=== PATIENT | male | born 1990 | race African-American/Black ===

== ENCOUNTER 2016-12-01 14:45 | Emergency (ER) | payer MEDICAID ==
[~2016-12-01] VITALS: Ht 182.9 cm; Wt 131.5 kg
[~2016-12-01 14:45] MED LIST: CYCLOBENZAPRINE10 MG ORAL; IBUPROFEN800 MG ORAL; KENALOG 0.5% CR15 GM TP
[2016-12-01] MEDS ORDERED: Ketorolac 60mg Inj IM ONE (16:30)
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
[2016-12-01] MEDS ORDERED: CYCLOBENZAPRINE10 MG ORAL (16:59)
[2016-12-01] MEDS ORDERED: IBUPROFEN600 MG ORAL (16:59)
[2016-12-01] MEDS ORDERED: TRIAMCINOLONE A15 G2 TP (17:15)
[2016-12-01 17:20] VITALS: BP 138/87
== END 2016-12-01 17:20 | disposition home or self-care (01) ==
LOC: EMR 16:35
DX: M62.830 Muscle spasm of back (principal); L30.1 Dyshidrosis [pompholyx]; L30.9 Dermatitis, unspecified; I10 Essential (primary) hypertension
CPT/HCPCS: 96372; 99284

== ENCOUNTER 2017-01-06 08:52 | Emergency (ER) | payer MEDICAID ==
[~2017-01-06] VITALS: Ht 182.9 cm; Wt 131.5 kg
[~2017-01-06 08:52] MED LIST changes: +IBUPROFEN600 MG ORAL; +TRIAMCINOLONE A15 G2 TP
[2017-01-06 09:08] VITALS: BP 136/87
[2017-01-06] MEDS ORDERED: Famotidine 20 MG/ 2ML VIAL IVP ONE (09:30)
[2017-01-06 09:52] LABS: APPEARANCE,URINE CLEAR; KETONES,URINE NEGATIVE (NEGATIVE); LEUKOCYTE ESTERASE ,URINE NEGATIVE (NEGATIVE); NITRITE,URINE NEGATIVE (NEGATIVE); PH,URINE 7 (4.5-8.0); PROTEIN,URINE NEGATIVE (NEGATIVE); UROBILINOGEN,URINE NORMAL MG/DL (0.0-1.0)
[2017-01-06 09:53] LABS: BASOPHILS % (AUTO) 0.5 % (0.0-2.0); EOSINOPHILS % (AUTO) 1.9 % (0.0-3.0); MEAN CORPUSCULAR HEMOGLOBIN 26.6 PG (27.0-31.0); MEAN CORPUSCULAR HGB CONC 32.4 G/DL (32.0-36.0); MEAN CORPUSCULAR VOLUME 82 FL (80-99); MEAN PLATELET VOLUME 8.7 FL (6.5-10.1); MONOCYTES % (AUTO) 5.9 % (1.0-10.0); NEUTROPHILS % (AUTO) 73.6 % (45.0-75.0); PLATELET COUNT 259 K/UL (150-450); RED BLOOD COUNT 5.82 M/UL (4.70-6.10); RED CELL DISTRIBUTION WIDTH 12.8 % (11.6-14.8); WHITE BLOOD COUNT 11.6 K/UL (4.8-10.8)
[2017-01-06 10:10] LABS: ALANINE AMINOTRANSFERASE 16 U/L (3-41); ANION GAP 15 (5-15); ASPARTATE AMINO TRANSFERASE 17 U/L (5-40); CALCIUM 9.4 mg/dL (8.6-10.2); CARBON DIOXIDE 26 mEQ/L (20-30); CHLORIDE 98 mEQ/L (98-107); CREATININE 0.9 mg/dL (0.7-1.2); GLOMERULAR FILTRATION RATE > 60 mL/min (>60); HEMOLYSIS 5; LIPASE 21 U/L (< 60); POTASSIUM 4.2 mEQ/L (3.4-4.9); SODIUM 139 mEQ/L (135-145); TOTAL PROTEIN 8.6 g/dL (6.6-8.7)
[2017-01-06] MEDS ORDERED: PEPCID20 MG ORAL (11:06)
[2017-01-06] MEDS ORDERED: ZOFRAN ODT4 MG ORAL (11:06)
[2017-01-06 11:13] VITALS: BP 134/81
[2017-01-06 11:22] VITALS: BP 134/81
--- NOTE | 2017-01-07 06:28 | Emergency Room Report ---
History of Present Illness General Chief Complaint: Abdominal Pain Source: Patient Present Illness HPI 26YOM walk-in with nausea/vomiting and generalized stomach discomfort/cramps since this morning. No associated fever/chills, diarrhea. No previous abd/ pelvic surgery. No sick contacts. Father and patient had dinner together previous night, father is well. Didnt take OTC meds. Unable to keep liquids down. Allergies: Coded Allergies: No Known Allergies (Unverified , 05/05/16) Patient History Past Medical History: none Past Surgical History: none Pertinent Family History: none Immunizations: UTD Reviewed Nursing Documentation: PMH: Agreed, PSxH: Agreed Nursing Documentation-PMH Hx Hypertension: Yes Review of Systems All Other Systems: negative except mentioned in HPI Physical Exam Vital Signs Date Time Temp Pulse Resp B/P Pulse Ox O2 Delivery O2 Flow Rate FiO2 01/06/17 08:55 97.5 72 16 136/87 97 Room Air Sp02 EP Interpretation: reviewed, normal General Appearance: normal inspection, well appearing, no apparent distress, alert, GCS 15, non-toxic Head: normocephalic, atraumatic Eyes: bilateral eye EOMI, bilateral eye PERRL ENT: normal ENT inspection Neck: normal inspection, full range of motion, supple, no bony tend Respiratory: normal inspection, lungs clear, normal breath sounds, no respiratory distress, no retraction, no wheezing Cardiovascular #1: regular rate, rhythm, no edema Gastrointestinal: normal inspection, normal bowel sounds, non tender, soft, no guarding, no hernia Genitourinary: no CVA tenderness Musculoskeletal: normal inspection, back normal, normal range of motion, Jordy' s Sign negative Neurologic: normal inspection, alert, oriented x3, responsive, java lead engineer III-XII nml as tested, speech normal Psychiatric: normal inspection, judgement/insight normal, mood/affect normal Skin: normal inspection, normal color, no rash Lymphatic: normal inspection Medical Decision Making Diagnostic Impression: Primary Impression: Abdominal pain Qualified Codes: R10.84 - Generalized abdominal pain Additional Impression: Nausea & vomiting Qualified Codes: R11.2 - Nausea with vomiting, unspecified ER Course 26YOM with nausea/vomiting and abd cramping since this morning. VSS. Afebrile. No focal abd ttp on exam No previous abd surgery Labs: H&H stable. 11k leuks likely reactionary. No metabolic derangement Improved with pepcid, zofran, IVF Non-tender on serial exam after meds Feels better, tolerating PO Likely viral gastroenteritis Low suspicion for acute bacterial or surgical process DC home with meds PMD followup Last Vital Signs Date Time Temp Pulse Resp B/P Pulse Ox O2 Delivery O2 Flow Rate FiO2 01/06/17 11:22 97.5 67 16 134/81 99 Room Air Status: improved Disposition: HOME, SELF-CARE Condition: Improved Scripts Ondansetron Odt* (ZOFRAN ODT*) 4 Mg Tab.rapdis 4 MG ORAL BID Y for Nausea & Vomiting, #20 TAB 0 Refills Prov: JULIENNE VEGA M.D. 01/06/17 Famotidine (PEPCID) 20 Mg Tablet 20 MG ORAL BID for 7 Days, #14 TAB 0 Refills Prov: JULIENNE VEGA M.D. 01/06/17 Referrals: [facility],REFERRING (PCP) Patient Instructions: Viral Gastroenteritis, Adult, Abdominal Pain, Adult Additional Instructions: - You likely have a stomach virus, gastroenteritis - Eat only bland food for next 2-3 days until you feel completely better - bananas, rice, apple sauce, toast, chicken soup, saltine crackers - Take pepcid twice daily for 1 week or until you feel completely better - Take Zofran for nausea/vomiting ONLY if you need to - Return to ER for severe worsening of pain, vomiting, fever/chills JULIENNE VEGA M.D. Jan 07, 2017 06:28
== END 2017-01-06 11:26 | disposition home or self-care (01) ==
LOC: EMR 09:52
DX: R11.2 Nausea with vomiting, unspecified (principal); R10.9 Unspecified abdominal pain; I10 Essential (primary) hypertension
CPT/HCPCS: 36415; 80053; 81003; 83690; 85025; 96374; 96375; 99284; J2405; S0028

== ENCOUNTER 2017-03-01 16:48 | Emergency (ER) | payer MEDICAID ==
[~2017-03-01] VITALS: Ht 182.9 cm; Wt 131.5 kg
[~2017-03-01 16:48] MED LIST changes: +PEPCID20 MG ORAL; +ZOFRAN ODT4 MG ORAL
[2017-03-01] MEDS ORDERED: Norco 5mg/325mg tab ORAL ONE (17:15)
[2017-03-01] MEDS ORDERED: TRIAMCINOLONE A15 GM TP (17:19)
[2017-03-01] MEDS ORDERED: TRAMADOL HCL50 MG ORAL (17:19)
[2017-03-01] MEDS ORDERED: IBUPROFEN600 MG ORAL (17:19)
[2017-03-01 17:30] VITALS: BP 123/79
--- NOTE | 2017-03-01 19:50 | Emergency Room Report ---
History of Present Illness General Chief Complaint: Lower Extremity Injury Source: Patient Present Illness HPI The patient is a 26 old male presenting for right knee pain which began one week prior. The patient states that he was at work and kneeled down and felt a popping sensation. He denies previous injury of the knee. Pain is described as a 7/10 dull ache it is worse with movement. He has used ice at home which has helped. He denies any radiating pain. He denies any numbness or tingling. He is also complaining of eczema of the hands which occurs several times a year. He states he has run out of topical steroids which usually helps. He describes this as itchy and denies any pain. He states this is typical for his eczema. He denies any other symptoms including fever, chills Allergies: Coded Allergies: No Known Allergies (Unverified , 05/05/16) Patient History Reviewed Nursing Documentation: PMH: Agreed, PSxH: Agreed Nursing Documentation-PMH Past Medical History: No Stated History Hx Hypertension: Yes Review of Systems All Other Systems: negative except mentioned in HPI Physical Exam Vital Signs Date Time Temp Pulse Resp B/P Pulse Ox O2 Delivery O2 Flow Rate FiO2 03/01/17 16:56 98.2 78 16 123/79 97 Room Air Sp02 EP Interpretation: reviewed, normal General Appearance: no apparent distress, alert, GCS 15, non-toxic Head: normocephalic, atraumatic Eyes: bilateral eye PERRL, bilateral eye normal inspection ENT: hearing grossly normal, normal pharynx, no angioedema, normal voice Neck: full range of motion, supple/symm/no masses Respiratory: chest non-tender, lungs clear, normal breath sounds, speaking full sentences Musculoskeletal: gait/station normal, normal range of motion, swelling - minimal edema to R medial knee, tender - TTP over the R anterior and medial knee Neurologic: alert, oriented x3, responsive, motor strength/tone normal, sensory intact, speech normal Psychiatric: judgement/insight normal, memory normal, mood/affect normal, no suicidal/homicidal ideation Skin: normal turgor, other - erythematous vesicles of bilat hands and fingers. Clear fluid Lymphatic: no adenopathy Procedures Splinting Splinting : Consent: Verbal Location: R knee Pre-Made Type: JARRED wrap Pre-Proc Neuro Vasc Exam: normal Post-Proc Neuro Vasc Exam: normal Patient Tolerated: Well Complications: None Medical Decision Making PA Attestation Dr. Subramanian is my supervising physician. Patient management was discussed with my supervising physician Diagnostic Impression: Primary Impression: Knee pain, right Qualified Codes: M25.561 - Pain in right knee Additional Impression: Dyshidrotic hand dermatitis ER Course The patient is a 26-year-old male presenting for right knee pain and rash of the hands Ddx considered include but not limited to sprain/strain, fracture, contusion Ddx considered include but not limited to dyshidrotic eczema, insect bite, contact dermatitis, cellulitis PE: vitals WNL. NAD Bilateral hands: Clear fluid-filled vesicles with erythema diffusely of the hand and fingers. No edema. Nontender. Right knee: Tenderness to palpation with mild edema to the anterior and medial knee. Full active range of motion. No laxity. No ecchymosis. Normal gait Jarred wrap was placed over the right knee The patient to be discharged home with a prescription for pain medication and triamcinolone. He will follow up with PMD. He was informed he may need MRI if pain continues Last Vital Signs Date Time Temp Pulse Resp B/P Pulse Ox O2 Delivery O2 Flow Rate FiO2 03/01/17 17:30 98.2 16 123/79 97 Room Air 03/01/17 16:56 78 Status: improved Disposition: HOME, SELF-CARE Condition: Improved Scripts Tramadol Hcl* (ULTRAM*) 50 Mg Tablet 50 MG ORAL Q6H Y for For Pain, #10 TAB 0 Refills Prov: TERZIAN,GILDARDO P.A. 03/01/17 Ibuprofen* (MOTRIN*) 600 Mg Tablet 600 MG ORAL Q8H Y for For Pain, #30 TAB 0 Refills Prov: TERZIAN,GILDARDO P.A. 03/01/17 Triamcinolone Acetonide (TRIAMCINOLONE ACETONIDE) 15 Gm Cream..g. 15 GM TP TID, #15 GM Prov: TERZIAN,GILDARDO P.A. 03/01/17 Referrals: [facility],REFERRING (PCP) Patient Instructions: Knee Pain, Hand Dermatitis Additional Instructions: I discussed my findings with the patient. All questions and concerns have been answered. Treatment and medication compliance have been addressed. I advised the patient that they need to follow up with PMD in 3-5 days. Return to ED if pain remains or worsens, numbness or tingling occurs, new rash is noticed, fever is noticed, or if needed for any reason. Patient verbalized understanding of discharge instructions. The patient was informed he will likely need MRI if pain continues or worsens GILDARDO MCKEE. Mar 01, 2017 19:50
== END 2017-03-01 17:30 | disposition home or self-care (01) ==
LOC: EMR 17:14
DX: M25.561 Pain in right knee (principal); L30.1 Dyshidrosis [pompholyx]; L30.8 Other specified dermatitis; I10 Essential (primary) hypertension
CPT/HCPCS: 29530; 99284

== ENCOUNTER 2017-04-07 11:40 | Emergency (ER) | payer MEDICAID ==
[~2017-04-07] VITALS: Ht 182.9 cm; Wt 140.6 kg
[~2017-04-07 11:40] MED LIST changes: +TRAMADOL HCL50 MG ORAL; +TRIAMCINOLONE A15 GM TP
--- NOTE | 2017-04-07 12:27 | Emergency Room Report ---
History of Present Illness General Chief Complaint: Pain Present Illness HPI 26-year-old male presents to the emergency department complaining of 8/10 in severity right-sided low back pain x 1 week, in addition to right knee pain x4 weeks. Patient was evaluated one month ago here in the emergency department for right knee strain and follow up with his PMD who stated his insurance does not cover MRI and he is awaiting for his benefits to kick in. Patient states in the meantime has been having to compensate and is now causing him to have low back pain. Patient denies injury or fall. Denies fevers, chills, history of neoplastic disease or recent spinal procedures. Denies numbness tingling or loss of sensation or gross motor movements of the extremities, incontinence of bowel or bladder. Denies CP, Palpitations, LOC, AMS, dizziness, Changes in Vision, Sensation, paresthesias, or a sudden severe headache. Allergies: Coded Allergies: No Known Allergies (Unverified , 05/05/16) Patient History Past Medical History: see triage record Past Surgical History: none Pertinent Family History: none Reviewed Nursing Documentation: PMH: Agreed, PSxH: Agreed Nursing Documentation-PMH Past Medical History: No Stated History Hx Hypertension: Yes Review of Systems All Other Systems: negative except mentioned in HPI Physical Exam Vital Signs Date Time Temp Pulse Resp B/P Pulse Ox O2 Delivery O2 Flow Rate FiO2 04/07/17 11:45 97.5 81 20 125/84 97 Room Air Sp02 EP Interpretation: reviewed, normal General Appearance: no apparent distress, alert, GCS 15, non-toxic Head: normocephalic, atraumatic Eyes: bilateral eye PERRL, bilateral eye normal inspection ENT: hearing grossly normal, normal pharynx, no angioedema, normal voice Neck: full range of motion, no bony tend, supple/symm/no masses Respiratory: lungs clear, normal breath sounds, speaking full sentences Cardiovascular #1: regular rate, rhythm, no edema Gastrointestinal: normal bowel sounds, non tender, soft, no guarding, no rebound Rectal: deferred Genitourinary: normal inspection, no CVA tenderness Musculoskeletal: back normal, gait/station normal, normal range of motion, no calf tenderness, tender - TTP to right lumbar paraspinal musculature, no bony / midline ttp, no obvious deformity, erythema, or step-offs noted. Neurologic: alert, oriented x3, responsive, motor strength/tone normal, sensory intact, normal gait, speech normal Psychiatric: judgement/insight normal, memory normal, mood/affect normal Skin: normal color, no rash, warm/dry, well hydrated Lymphatic: no adenopathy Medical Decision Making PA Attestation Dr. Torres is my supervising Physician whom patient management has been discussed with. Diagnostic Impression: Primary Impression: Lumbar spine strain Qualified Codes: S39.012A - Strain of muscle, fascia and tendon of lower back , initial encounter Additional Impression: History of knee sprain ER Course 26-year-old male presents to the emergency department complaining of 8/10 in severity right-sided low back pain x 1 week, in addition to right knee pain x4 weeks. Patient was evaluated one month ago here in the emergency department for right knee strain and follow up with his PMD who stated his insurance does not cover MRI and he is awaiting for his benefits to kick in. Patient states in the meantime has been having to compensate and is now causing him to have low back pain. Patient denies injury or fall. Denies fevers, chills, history of neoplastic disease or recent spinal procedures. Denies numbness tingling or loss of sensation or gross motor movements of the extremities, incontinence of bowel or bladder. Denies CP, Palpitations, LOC, AMS, dizziness, Changes in Vision, Sensation, paresthesias, or a sudden severe headache. Ddx considered but are not limited to Fracture, dislocation, contusion, epidural abscess, Sprain/Strain/Spasm Vital signs: are WNL, pt. is afebrile H&PE are most consistent with low back muscle strain. Pt. noted to not be wearing michele wrap which was previously dispensed to him at previous ED visit. Pt. NAD, FROM. ORDERS: none required at this time. ED INTERVENTIONS: -Soma PO DISCHARGE: At this time pt. is stable for d/c to home. Will provide printed patient care instructions, and any necessary prescriptions. Care plan and follow up instructions have been discussed with the patient prior to discharge. Last Vital Signs Date Time Temp Pulse Resp B/P Pulse Ox O2 Delivery O2 Flow Rate FiO2 04/07/17 11:45 97.5 81 20 125/84 97 Room Air Disposition: HOME, SELF-CARE Condition: Stable Scripts Ibuprofen* (MOTRIN*) 600 Mg Tablet 600 MG ORAL THREE TIMES A DAY, #30 TAB 0 Refills Prov: Joanna Michaels 04/07/17 Cyclobenzaprine Hcl* (FLEXERIL*) 10 Mg Tablet 10 MG ORAL THREE TIMES A DAY for 7 Days, #21 TAB Prov: Joanna Michaels 04/07/17 Patient Instructions: Knee Pain, [id number], Lumbosacral Strain Additional Instructions: Take medications as directed. Follow up with a Primary Care Provider in 3-5 days, even if your symptoms have resolved. --Please review list of primary care clinics, if you do not already have a primary care provider, for further evaluation of your symptoms. Return sooner to ED if new symptoms occur, or current symptoms become worse. Do not drink alcohol, drive, or operate heavy machinery while taking Muscle Relaxer as this may cause drowsiness. - Please note that this Emergency Department Report was dictated using [employer]lex[employer]digital media buyer technology software, occasionally this can lead to erroneous entry secondary to interpretation by the dictation equipment. Joanna Michaels Apr 07, 2017 12:27
[2017-04-07] MEDS ORDERED: IBUPROFEN600 MG ORAL (12:28)
[2017-04-07] MEDS ORDERED: CYCLOBENZAPRINE10 MG ORAL (12:28)
[2017-04-07 12:37] VITALS: BP_SYST 125; BP_SYST 130; BP_DIAS 70; BP_DIAS 84
== END 2017-04-07 12:40 | disposition home or self-care (01) ==
LOC: EMR 12:30
DX: S39.012A Strain of muscle, fascia and tendon of lower back, initial encounter (principal); M25.561 Pain in right knee; I10 Essential (primary) hypertension; X58.XXXA Exposure to other specified factors, initial encounter; Y93.9 Activity, unspecified; Y92.9 Unspecified place or not applicable
CPT/HCPCS: 99284

== ENCOUNTER 2017-04-28 21:26 | Emergency (ER) | payer MEDICAID ==
[~2017-04-28] VITALS: Ht 182.9 cm; Wt 142.9 kg
--- NOTE | 2017-04-28 21:49 | Emergency Room Report ---
History of Present Illness General Chief Complaint: Male Urogenital Problems Source: Patient Present Illness HPI Is a 26-year-old male with no past medical history. He presents with chief complaint of body pain and chills. Onset was an hour ago. He was acute. Has body pain as 8/10. [place] weak. No nausea no vomiting. Does have some groin pain. Denies any other complaint. Hasn't redness to the abdominal wall and it is itchy. No cough or congestion. No diarrhea. No nominal pain to Allergies: Coded Allergies: No Known Allergies (Unverified , 05/05/16) Patient History Past Medical History: see triage record, old chart reviewed Past Surgical History: none Pertinent Family History: none Social History: Denies: smoking Immunizations: other Reviewed Nursing Documentation: PMH: Agreed, PSxH: Agreed Nursing Documentation-PMH Past Medical History: No Stated History Hx Hypertension: Yes Review of Systems Constitutional: Reports: chills, fever, malaise Eye: Denies: blurred vision, eye pain ENT: Denies: ear pain, nose congestion, throat swelling Respiratory: Denies: cough, shortness of breath Cardiovascular: Denies: chest pain, palpitations Gastrointestinal: Denies: abdominal pain, diarrhea, nausea, vomiting Musculoskeletal: Denies: back pain, joint pain Skin: Denies: rash Neurological: Denies: headache, numbness Endocrine: Denies: increased thirst, increased urine Hematologic/Lymphatic: Denies: easy bruising All Other Systems: negative except mentioned in HPI Physical Exam Vital Signs Date Time Temp Pulse Resp B/P Pulse Ox O2 Delivery O2 Flow Rate FiO2 04/28/17 21:28 98.4 89 18 128/84 97 Room Air vitals normal Sp02 EP Interpretation: reviewed, normal General Appearance: well appearing, no apparent distress, alert Head: normocephalic, atraumatic Eyes: bilateral eye EOMI, bilateral eye PERRL ENT: hearing grossly normal, normal pharynx Neck: full range of motion, supple, no meningismus Respiratory: chest non-tender, lungs clear, normal breath sounds Cardiovascular #1: regular rate, rhythm, no murmur Gastrointestinal: normal bowel sounds, non tender, no mass, no organomegaly, no bruit, non-distended, other - Local area of erythema measuring about 2 x 1 cm of the right lower quadrant. No abscess. Mild tenderness over the suprapubic area. No testicular tenderness. Musculoskeletal: back normal, gait/station normal, normal range of motion Neurologic: alert, oriented x3 Psychiatric: mood/affect normal Skin: warm/dry Medical Decision Making Diagnostic Impression: Primary Impression: Febrile illness, acute ER Course Patient presents with febrile illness. He does feel warm to the touch. He does have myalgia. No evidence of bacterial infection. But this is early the process however. No melena pain. No evidence of pneumonia, sepsis, acute abdomen. We'll discharge home with reassurance. Told patient to come back if having a fever, pain localized the right lower caught it or any concern. Lab Results Impression labs normal Last Vital Signs Date Time Temp Pulse Resp B/P Pulse Ox O2 Delivery O2 Flow Rate FiO2 04/28/17 21:28 98.4 89 18 128/84 97 Room Air Status: improved Disposition: HOME, SELF-CARE Condition: Stable Scripts Ibuprofen* (MOTRIN*) 600 Mg Tablet 600 MG ORAL THREE TIMES A DAY, #30 TAB 0 Refills Prov: BRENDA CORTEZ M.D. 04/28/17 Additional Instructions: Followup with your DrMateus in 2-3 days. Return for increasing pain, fever, chills, pain localized to right lower quadrant or any concern. BRENDA COTREZ M.D. Apr 28, 2017 21:49
[2017-04-28 21:50] VITALS: BP 130/82
[2017-04-28] MEDS ORDERED: Ketorolac 30mg Inj IV ONE (22:00)
[2017-04-28] MEDS ORDERED: Acetaminophen 500mg (ES) tab ORAL ONE (22:00)
[2017-04-28 22:26] LABS: BASOPHILS % (AUTO) 0.9 % (0.0-2.0); EOSINOPHILS % (AUTO) 0.7 % (0.0-3.0); LYMPHOCYTES % (AUTO) 10.8 % (20.0-45.0); MEAN CORPUSCULAR HEMOGLOBIN 28.9 PG (27.0-31.0); MEAN CORPUSCULAR HGB CONC 35.4 G/DL (32.0-36.0); MEAN CORPUSCULAR VOLUME 82 FL (80-99); MONOCYTES % (AUTO) 6.6 % (1.0-10.0); NEUTROPHILS % (AUTO) 81.1 % (45.0-75.0); PLATELET COUNT 225 K/UL (150-450); RED BLOOD COUNT 5.36 M/UL (4.70-6.10); RED CELL DISTRIBUTION WIDTH 12.7 % (11.6-14.8); WHITE BLOOD COUNT 11.6 K/UL (4.8-10.8)
[2017-04-28 22:27] LABS: APPEARANCE,URINE CLEAR; KETONES,URINE NEGATIVE (NEGATIVE); LEUKOCYTE ESTERASE ,URINE NEGATIVE (NEGATIVE); NITRITE,URINE NEGATIVE (NEGATIVE); PH,URINE 6 (4.5-8.0); PROTEIN,URINE NEGATIVE (NEGATIVE); UROBILINOGEN,URINE NORMAL MG/DL (0.0-1.0)
[2017-04-28 22:36] LABS: ALANINE AMINOTRANSFERASE 17 U/L (3-41); ALBUMIN/GLOBULIN RATIO 1.4 (1.0-2.7); ANION GAP 11 (5-15); ASPARTATE AMINO TRANSFERASE 18 U/L (5-40); CALCIUM 9.2 mg/dL (8.6-10.2); CARBON DIOXIDE 26 mEQ/L (20-30); CHLORIDE 98 mEQ/L (98-107); GLOMERULAR FILTRATION RATE > 60 mL/min (>60); HEMOLYSIS 5; LIPASE 20 U/L (< 60); POTASSIUM 4.1 mEQ/L (3.4-4.9); SODIUM 135 mEQ/L (135-145); TOTAL PROTEIN 7.6 g/dL (6.6-8.7)
[2017-04-28] MEDS ORDERED: IBUPROFEN600 MG ORAL (22:51)
[2017-04-28 23:00] VITALS: BP 115/76
== END 2017-04-28 23:00 | disposition home or self-care (01) ==
LOC: EMR 21:34
DX: R50.9 Fever, unspecified (principal); R52 Pain, unspecified; I10 Essential (primary) hypertension
CPT/HCPCS: 36415; 80053; 81003; 83690; 85025; 96360; 96374; 99284; J1885

== ENCOUNTER 2017-12-04 12:18 | Emergency (ER) | payer MEDICAID, OTHER ==
[~2017-12-04] VITALS: Ht 182.9 cm; Wt 136.1 kg
--- NOTE | 2017-12-04 12:37 | Emergency Room Report ---
History of Present Illness General Chief Complaint: General Complaint Source: Patient (Wade Bates) Present Illness HPI 27 yo male patient presents to ER for back pain. Patient requesting medical clearance to go to work. Seen by work physician and told he has a fracture at L5-S1 level of spine. Denies pain acutely. Denies recent trauma. Denies bowel or bladder incontinence or retention. Denies hx of surgery. Denies back pain radiating. Reports pain worse with walking long distances. Denies fever, chest pain, SOB, rash, abdominal pain. Denies IVDA. (Wade Bates) Allergies: Coded Allergies: No Known Allergies (Unverified , 05/05/16) Patient History Past Medical History: see triage record Reviewed Nursing Documentation: PMH: Agreed, PSxH: Agreed (Wade Bates) Nursing Documentation-PMH Hx Hypertension: Yes (Wade Bates) Review of Systems All Other Systems: negative except mentioned in HPI (Wade Bates) Physical Exam Vital Signs Date Time Temp Pulse Resp B/P (MAP) Pulse Ox O2 Delivery O2 Flow Rate FiO2 12/04/17 12:27 98.3 79 16 134/100 96 Room Air 98.2 Sp02 EP Interpretation: reviewed, normal General Appearance: well appearing, no apparent distress, alert, GCS 15 Head: normocephalic, atraumatic Eyes: bilateral eye normal inspection, bilateral eye PERRL ENT: hearing grossly normal, normal pharynx, no angioedema, normal voice, uvula midline, moist mucus membranes Neck: full range of motion Respiratory: lungs clear, normal breath sounds, no rhonchi, no respiratory distress, no accessory muscle use, no wheezing, speaking full sentences Cardiovascular #1: regular rate, rhythm, no edema Gastrointestinal: non tender, soft, no mass, non-distended, no guarding, no rebound Genitourinary: no CVA tenderness Musculoskeletal: back normal, digits/nails normal, gait/station normal, normal range of motion, non-tender, no calf tenderness Neurologic: alert, oriented x3, responsive, motor strength/tone normal, sensory intact Psychiatric: mood/affect normal Skin: no rash Lymphatic: no adenopathy (Wade Bates) Medical Decision Making PA Attestation Dr. Subramanian is my supervising Physician whom patient management has been discussed with. (Wade Bates) Diagnostic Impression: Primary Impression: Low back pain ER Course Pt presents to ED c/o back pain. DDX considered but are not limited to sprain, strain, cauda equine, epidural abscess. Low suspicion for cauda equina, no bowel or bladder incontinence or retention. No fever, nontoxic appearing, no radiation of pain, low suspicion for epidural mass. VITAL SIGNS are WNL, patient is afebrile. ER COURSE: Patient requesting medical clearance for work. Informed patient that cannot give him medical clearance at this time. Must be done by primary care provider who can followup and monitor his progress. ER is only for acute interventions. Contact insurance and followup with primary care provider to receive medical clearance for lifting weight at work. Patient reports understanding and agreement to treatment plan. Discuss patient with Dr. Subramanian, agrees with treatment and plan. DISCHARGE: -Rx provided for Robaxin, followup with PCP and discuss referral to pain management for further treatment as needed. At this time pt. is stable for d/c to home. At this time patient is resting comfortably, in no acute distress, nontoxic appearing, smiling and talking without difficulty. Will provide printed patient care instructions, and any necessary prescriptions. Patient instructed to follow with primary care provider for further treatment and referral as needed. Discuss ortho and PT referral. Care plan and follow up instructions have been discussed with the patient prior to discharge. Patient reports understanding and agreement to treatment plan. Patient questions asked and answered. ER precautions given, patient instructed to return to ER immediately for any new or worsening of symptoms. (Wade Bates) Last Vital Signs Date Time Temp Pulse Resp B/P (MAP) Pulse Ox O2 Delivery O2 Flow Rate FiO2 12/04/17 12:27 98.3 79 16 134/100 96 Room Air 98.2 (Wade Bates) Last Vital Signs Date Time Temp Pulse Resp B/P (MAP) Pulse Ox O2 Delivery O2 Flow Rate FiO2 12/04/17 13:30 98.4 88 16 130/97 96 Room Air 98.4 (Awais Subramanian M.D.) Disposition: HOME, SELF-CARE Condition: Stable Scripts Methocarbamol* (ROBAXIN*) 500 Mg Tablet 500 MG PO BID, #10 TAB 0 Refills Prov: Wade Bates 12/04/17 Patient Instructions: Back Pain, Adult, [id number] Additional Instructions: Followup with primary care provider in 3 -5 days to receive medical clearance. Contact insurance for primary care provider information. Take medications as directed. Patient questions asked and answered. ER precautions given, patient instructed to return to ER immediately for any new or worsening of symptoms. Wade Bates Dec 04, 2017 12:37 Awais Subramanian M.D. Dec 06, 2017 02:24
[2017-12-04] MEDS ORDERED: ROBAXIN500 MG PO (13:25)
[2017-12-04 13:30] VITALS: BP_SYST 130; BP_SYST 134; BP_DIAS 100; BP_DIAS 97
== END 2017-12-04 13:40 | disposition home or self-care (01) ==
LOC: EMR 13:39
DX: M54.5 Low back pain (principal); I10 Essential (primary) hypertension
CPT/HCPCS: 99283

== ENCOUNTER 2018-10-13 11:36 | Emergency (ER) | payer OTHER ==
[~2018-10-13] VITALS: Ht 182.9 cm; Wt 131.5 kg
[~2018-10-13 11:36] MED LIST changes: +ROBAXIN500 MG PO
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
[2018-10-13 12:06] VITALS: BP 130/91
[2018-10-13] MEDS ORDERED: Ketorolac 30mg Inj IM ONE (12:30)
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
[2018-10-13] MEDS ORDERED: IBUPROFEN600 MG ORAL (12:41)
[2018-10-13] MEDS ORDERED: ROBAXIN500 MG PO (12:41)
[2018-10-13 12:50] VITALS: BP 130/91
--- NOTE | 2018-10-13 12:51 | NUR ---
ED Nurse Note: pt was cleared for discharge by DORA. prescription and discharge instruction explained. pt is aox 4, pt able to verbalize understanding. id band removed. pt able to walk with steady gait. pt left with all belongings.
== END 2018-10-13 12:50 | disposition home or self-care (01) ==
LOC: EMR 12:39
DX: M62.830 Muscle spasm of back (principal); S63.501A Unspecified sprain of right wrist, initial encounter; V43.52XA Car driver injured in collision with other type car in traffic accident, initial encounter; Y92.410 Unspecified street and highway as the place of occurrence of the external cause; I10 Essential (primary) hypertension
CPT/HCPCS: 96372; 99283; J1885

== ENCOUNTER 2019-01-14 20:18 | Emergency (ER) | payer MEDICAID, OTHER ==
[~2019-01-14] VITALS: Ht 182.9 cm; Wt 136.1 kg
[2019-01-14] MEDS ORDERED: NKM (20:25)
[2019-01-14 21:32] LABS: BASOPHILS % (AUTO) 0.8 % (0.0-2.0); EOSINOPHILS % (AUTO) 2.3 % (0.0-3.0); HEMATOCRIT 42.7 % (42.0-52.0); HEMOGLOBIN 15.2 G/DL (14.2-18.0); LYMPHOCYTES % (AUTO) 23.9 % (20.0-45.0); MEAN CORPUSCULAR VOLUME 77 FL (80-99); MONOCYTES % (AUTO) 6.6 % (1.0-10.0); NEUTROPHILS % (AUTO) 66.4 % (45.0-75.0); PLATELET COUNT 258 K/UL (150-450); RED BLOOD COUNT 5.52 M/UL (4.70-6.10)
--- NOTE | 2019-01-14 21:40 | Emergency Room Report ---
History of Present Illness General Chief Complaint: Dyspnea/Respdistress Source: Patient Present Illness HPI This patient states that for the past couple weeks he has noticed shortness of breath at nighttime. He states the shortness of breath is primarily been when he lays down at night. He states over the past couple days he is also felt short of breath during the day. He denies recent illness. He denies cough or congestion. He denies fever or chills. He denies chest pain. He denies abdominal pain. He denies leg swelling. He denies long distance travel or immobilization. He states that he works about 16 hours a day. He has no other complaints. Allergies: Coded Allergies: No Known Allergies (Unverified , 05/05/16) Patient History Past Medical History: none, HTN Social History: Reports: drug use - THC; Denies: smoking, alcohol use Reviewed Nursing Documentation: PMH: Agreed; PSxH: Agreed Nursing Documentation-PMH Past Medical History: No History, Except For Hx Hypertension: Yes Review of Systems All Other Systems: negative except mentioned in HPI Physical Exam Vital Signs Date Time Temp Pulse Resp B/P (MAP) Pulse Ox O2 Delivery O2 Flow Rate FiO2 01/14/19 20:21 98.4 73 14 141/93 94 Room Air Sp02 EP Interpretation: reviewed, normal General Appearance: no apparent distress, alert, GCS 15, non-toxic Head: normocephalic, atraumatic Eyes: bilateral eye normal inspection, bilateral eye PERRL ENT: hearing grossly normal, normal pharynx, no angioedema, normal voice Neck: full range of motion, supple/symm/no masses Respiratory: chest non-tender, lungs clear, normal breath sounds, no respiratory distress, no retraction, no accessory muscle use, speaking full sentences Cardiovascular #1: regular rate, rhythm, no edema Gastrointestinal: normal bowel sounds, non tender, soft, non-distended, no guarding, no rebound Musculoskeletal: back normal, gait/station normal, normal range of motion, non- tender Neurologic: alert, oriented x3, responsive, motor strength/tone normal, sensory intact, speech normal Psychiatric: judgement/insight normal, memory normal, mood/affect normal, no suicidal/homicidal ideation Skin: normal color, no rash, warm/dry, well hydrated Medical Decision Making Diagnostic Impression: Primary Impression: Dyspnea ER Course This patient complains of dyspnea. On examination he is nontoxic without respiratory distress. I did not identify any wheezing or refills on his lung exam. He does not appear in any type of distress. I did obtain basic labs to include CBC, CMP, cardiac enzymes and a thyroid panel which were all unremarkable and noncontributory other than the free T3 was elevated. However, the patient's serum TSH and free T4 were unremarkable. This is very reassuring. I'm unsure of the etiology of the patient's elevated and free T3. I educated the patient on this finding and instructed the patient to follow-up with his primary care physician. I also obtained an EKG which was unremarkable. Chest x-ray has no acute findings. Specifically, there is no evidence of congestive heart failure, pneumothorax, pleural effusion. On examination there is no evidence of asthma or bronchospasm. Overall, the patient's evaluation was benign. I have very low suspicion for PE given the patient's age and history. He is PERC and Wells low risk. He was instructed to follow-up with his primary care physician. He is given close return precautions and follow-up instructions. Laboratory Tests Test 01/14/19 21:10 White Blood Count 12.0 K/UL (4.8-10.8) H Red Blood Count 5.52 M/UL (4.70-6.10) Hemoglobin 15.2 G/DL (14.2-18.0) Hematocrit 42.7 % (42.0-52.0) Mean Corpuscular Volume 77 FL (80-99) L Mean Corpuscular Hemoglobin 27.5 PG (27.0-31.0) Mean Corpuscular Hemoglobin Concent 35.5 G/DL (32.0-36.0) Red Cell Distribution Width 12.0 % (11.6-14.8) Platelet Count 258 K/UL (150-450) Mean Platelet Volume 7.6 FL (6.5-10.1) Neutrophils (%) (Auto) 66.4 % (45.0-75.0) Lymphocytes (%) (Auto) 23.9 % (20.0-45.0) Monocytes (%) (Auto) 6.6 % (1.0-10.0) Eosinophils (%) (Auto) 2.3 % (0.0-3.0) Basophils (%) (Auto) 0.8 % (0.0-2.0) Sodium Level Pending Potassium Level Pending Chloride Level Pending Carbon Dioxide Level Pending Blood Urea Nitrogen Pending Creatinine Pending Estimate Glomerular Filtration Rate Pending Glucose Level Pending Calcium Level Pending Total Bilirubin Pending Aspartate Amino Transferase (AST) Pending Alanine Aminotransferase (ALT) Pending Alkaline Phosphatase Pending Total Creatine Kinase Pending Creatine Kinase MB Pending Troponin I Pending Total Protein Pending Albumin Pending Globulin Pending Thyroid Stimulating Hormone (TSH) Pending Free Thyroxine Pending Free Triiodothyronine Pending EKG Diagnostic Results Rate: normal Rhythm: NSR ST Segments: no acute changes Rhythm Strip Diag. Results EP Interpretation: yes Rate: 70's Rhythm: NSR, no PVC's, no ectopy Chest X-Ray Diagnostic Results Chest X-Ray Diagnostic Results : Chest X-Ray Ordered: Yes # of Views/Limited/Complete: 1 View Indication: Shortness of Breath EP Interpretation: Yes Interpretation: no consolidation, no effusion, no pneumothorax, no acute cardiopulmonary disease Impression: No acute disease Electronically Signed by: Zuri Shay DO Last Vital Signs Date Time Temp Pulse Resp B/P (MAP) Pulse Ox O2 Delivery O2 Flow Rate FiO2 01/14/19 20:21 98.4 73 14 141/93 94 Room Air Status: improved Disposition: HOME, SELF-CARE Condition: Improved Referrals: [facility],REFERRING (PCP) Patient Instructions: Shortness of Breath, [id number] Zuri Shay DO Jan 14, 2019 21:40
[2019-01-14 21:41] LABS: ANION GAP 10 mmol/L (5-15); BLOOD UREA NITROGEN 12 mg/dL (7-18); CALCIUM 9.1 MG/DL (8.5-10.1); CARBON DIOXIDE 29 MMOL/L (21-32); CHLORIDE 101 MMOL/L (98-107); CREATININE 0.9 MG/DL (0.55-1.30); SODIUM 140 MMOL/L (136-145)
[2019-01-14 21:55] LABS: ALANINE AMINOTRANSFERASE 32 U/L (12-78); ALBUMIN/GLOBULIN RATIO 1.1 (1.0-2.7); ALKALINE PHOSPHATASE 88 U/L (46-116); ASPARTATE AMINO TRANSFERASE 15 U/L (15-37); BILIRUBIN,TOTAL 0.5 MG/DL (0.2-1.0); CKMB 0.8 NG/ML (0.0-3.6); CREATINE KINASE 194 U/L (26-308)
[2019-01-14 22:30] VITALS: BP 119/75
[2019-01-14 22:35] VITALS: BP 119/75
--- NOTE | 2019-01-15 12:55 | Diagnostic Imaging Report ---
Indication: Reason For Exam: SOB Technique: One view of the chest Comparison: none Findings: Lungs and pleural spaces are clear. Heart size is normal Impression: No acute process
--- NOTE | 2019-01-18 15:47 | Cardiology Report ---
APPROVED REPORT EKG Measurement Heart [id number] Normal sinus rhythm Normal ECG
== END 2019-01-14 22:35 | disposition home or self-care (01) ==
LOC: EMR 21:15
DX: R06.00 Dyspnea, unspecified (principal); I10 Essential (primary) hypertension
CPT/HCPCS: 36415; 71045; 80053; 82550; 82553; 84439; 84443; 84481; 84484; 85025; 93005; 99283

== ENCOUNTER 2019-01-16 13:43 | Emergency (ER) | payer OTHER ==
[~2019-01-16] VITALS: Ht 182.9 cm; Wt 140.6 kg
[~2019-01-16 13:43] MED LIST changes: +NKM
--- NOTE | 2019-01-16 13:54 | NUR ---
ED Nurse Note: Pt came to the ER w/ complaints of sore throat x 4-5 days. Pt was here a couple days ago but stated that he doesnt seem like it is getting any better. Pt denies having pain. Pt is A + O x4. Ambulatory. Skin warm to touch.
[2019-01-16 13:56] VITALS: BP 144/100
--- NOTE | 2019-01-16 14:09 | Emergency Room Report ---
History of Present Illness General Chief Complaint: Sore Throat Source: Patient Present Illness HPI 28-year-old male presents to the emergency department complaining of intermittent pain in the chest anteriorly intermittently as well as feeling short of breath and coughing 1 week. Patient reports symptoms are worse at nighttime when laying flat some relief with sitting and recliner. Patient states that he was recently seen here in the emergency department for similar symptoms and he continues to experience his symptoms. Patient denies recent travel denies recent immobilization denies chest pain at this time denies palpitation reports some sputum production. Denies hemoptysis. Denies nausea or vomiting or history of acid reflux. Denies dizziness. Denies asthma or COPD hx. Allergies: Coded Allergies: No Known Allergies (Unverified , 01/16/19) Patient History Past Medical History: see triage record, old chart reviewed Past Surgical History: none Pertinent Family History: none Reviewed Nursing Documentation: PMH: Agreed; PSxH: Agreed Nursing Documentation-PMH Past Medical History: No History, Except For Hx Hypertension: Yes Review of Systems All Other Systems: negative except mentioned in HPI Physical Exam Vital Signs Date Time Temp Pulse Resp B/P (MAP) Pulse Ox O2 Delivery O2 Flow Rate FiO2 01/16/19 13:48 98.8 84 16 148/104 98 Room Air Sp02 EP Interpretation: reviewed, normal General Appearance: no apparent distress, alert, GCS 15, non-toxic Head: normocephalic, atraumatic Eyes: bilateral eye normal inspection, bilateral eye PERRL ENT: hearing grossly normal, normal voice, pharyngeal erythema Neck: full range of motion Respiratory: chest non-tender, lungs clear, normal breath sounds, no respiratory distress, no wheezing, speaking full sentences Cardiovascular #1: regular rate, rhythm, no edema, normal capillary refill Gastrointestinal: normal bowel sounds, non tender, soft, non-distended, no guarding Musculoskeletal: back normal, gait/station normal, normal range of motion, non- tender Neurologic: alert, oriented x3, responsive, motor strength/tone normal, sensory intact, speech normal, grossly normal Psychiatric: judgement/insight normal Skin: normal color, no rash, warm/dry, well hydrated Lymphatic: no adenopathy Medical Decision Making PA Attestation Dr. perez is my supervising Physician whom patient management has been discussed with. Diagnostic Impression: Primary Impression: GERD with esophagitis ER Course 28-year-old male presents to the emergency department complaining of intermittent pain in the chest anteriorly intermittently as well as feeling short of breath and coughing 1 week. Patient reports symptoms are worse at nighttime when laying flat some relief with sitting and recliner. Patient states that he was recently seen here in the emergency department for similar symptoms and he continues to experience his symptoms. Patient denies recent travel denies recent immobilization denies chest pain at this time denies palpitation reports some sputum production. Denies hemoptysis. Denies nausea or vomiting or history of acid reflux. Denies dizziness. Denies asthma or COPD hx. Ddx considered but are not limited to GERD, CT, pneumonia, contusion, costochondritis, PE, ACS, Shoulder strain, Chest wall contusion. aortic dissection. Vital signs: are WNL, pt. is afebrile * OLD CHART REVIEWED* H&PE are most consistent with Acid reflux. ---Patient had a normal cardiac workup 2 days ago his symptoms are worse at night while lying flat and are consistent with suspicion for acid reflux. And states that he has not received any medications for this condition and therefore I feel that he should be treated with antacids. ORDERS: - none required at this time ED INTERVENTIONS: - none DISCHARGE: At this time pt. is stable for d/c to home. Will provide printed patient care instructions, and any necessary prescriptions. Care plan and follow up instructions have been discussed with the patient prior to discharge. Last Vital Signs Date Time Temp Pulse Resp B/P (MAP) Pulse Ox O2 Delivery O2 Flow Rate FiO2 01/16/19 13:56 98.3 78 17 144/100 98 Room Air Status: improved Disposition: HOME, SELF-CARE Condition: Stable Scripts Omeprazole (OMEPRAZOLE) 20 Mg Capsule. 20 MG ORAL DAILY, #30 CAP Prov: Joanna Michaels 01/16/19 Ranitidine Hcl* (ZANTAC*) 150 Mg Tablet 150 MG ORAL TWICE A DAY for 7 Days, #14 TAB Prov: Joanna Michaels 01/16/19 Departure Forms: Return to Work Return to Work Date: Jan 18, 2019 Work Restrictions: None Return to Full Activity: Jan 18, 2019 Patient Instructions: Food Choices for Gastroesophageal Reflux Disease, Adult, [id number], Gastroesophageal Reflux Disease, Adult Additional Instructions: Take medications as directed. Follow up with a Primary Care Provider in 3-5 days, even if your symptoms have resolved. --Please review list of primary care clinics, if you do not already have a primary care provider Return sooner to ED if new symptoms occur, or current symptoms become worse. - Please note that this Emergency Department Report was dictated using [employer] wood[employer] technology software, occasionally this can lead to erroneous entry secondary to interpretation by the dictation equipment. Joanna Michaels Jan 16, 2019 14:09
[2019-01-16] MEDS ORDERED: OMEPRAZOLE20 M2 ORAL (14:27)
[2019-01-16] MEDS ORDERED: ZANTAC150 MG ORAL (14:27)
[2019-01-16 14:34] VITALS: BP 140/99
--- NOTE | 2019-01-16 14:35 | NUR ---
ER DISCHARGE NOTE: Patient is cleared to be discharged per ERMD, pt is aox4, on room air, with stable vital signs. pt was given dc and prescription instructions, pt was able to verbalize understanding, pt id band removed without complications. pt is able to ambulate with steady gait. pt took all belongings.
== END 2019-01-16 14:35 | disposition home or self-care (01) ==
LOC: EMR 14:15
DX: K21.0 Gastro-esophageal reflux disease with esophagitis (principal); I10 Essential (primary) hypertension
CPT/HCPCS: 99282

== ENCOUNTER 2019-09-08 19:50 | Emergency (ER) | payer OTHER ==
[~2019-09-08] VITALS: Ht 182.9 cm; Wt 127.0 kg
[~2019-09-08 19:50] MED LIST changes: +OMEPRAZOLE20 M2 ORAL; +ZANTAC150 MG ORAL
--- NOTE | 2019-09-08 20:30 | NUR ---
ED Nurse Note: pt walked in c/o right ankle pain x 1 wk, pt states he was walking down porch and accidentally injured his ankle. pt states the pain has been constant and worsen on movement such as walking. no obvious deformity noted at this time, nor wound nor contusion. noted pt walking w/ limp. cms intact, cap refill <3sec. will cont monitor.
[2019-09-08] MEDS ORDERED: IBU800 MG PO (20:44)
[2019-09-08] MEDS ORDERED: ROBAXIN-500MG ORAL (20:44)
--- NOTE | 2019-09-08 20:44 | Emergency Room Report ---
History of Present Illness General Chief Complaint: Lower Extremity Injury Source: Patient Present Illness HPI 28-year-old male with no significant past medical history here complaining of a 10 out of 10 right ankle pain x1 week. Patient reports that he fell off a porch and twisted his ankle 1 week ago. Patient was taking [id number] Motrin with no relief. 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 Patient has some localized swelling in the right lateral malleolus, denies any radiation, calf tenderness, numbness and tingling. Denies all other associated injuries, loss of consciousness, head injury, chest pain, shortness of breath, palpitation, no other associated symptoms. Allergies: Coded Allergies: No Known Allergies (Unverified , 01/16/19) Patient History Past Medical History: see triage record Past Surgical History: none Pertinent Family History: none Immunizations: UTD Reviewed Nursing Documentation: PMH: Agreed; PSxH: Agreed Nursing Documentation-PMH Past Medical History: No History, Except For Hx Hypertension: Yes Review of Systems All Other Systems: negative except mentioned in HPI Physical Exam Vital Signs Date Time Temp Pulse Resp B/P (MAP) Pulse Ox O2 Delivery O2 Flow Rate FiO2 09/08/19 20:01 97.9 78 18 143/96 (112) 96 Room Air Sp02 EP Interpretation: reviewed, normal General Appearance: no apparent distress, alert, GCS 15, non-toxic Head: normocephalic, atraumatic Eyes: bilateral eye normal inspection, bilateral eye PERRL ENT: hearing grossly normal, normal pharynx, no angioedema, normal voice Neck: full range of motion, supple/symm/no masses Respiratory: chest non-tender, lungs clear, normal breath sounds, no rhonchi, no respiratory distress, no wheezing, speaking full sentences Cardiovascular #1: regular rate, rhythm, no edema, no murmur Cardiovascular #2: 2+ dorsalis pedis (R), 2+ dorsalis pedis (L) Gastrointestinal: normal bowel sounds, non tender, soft, non-distended, no guarding, no rebound Rectal: deferred Genitourinary: no CVA tenderness Musculoskeletal: back normal, inflammation - right Ankle over lateral malleolus , no calf tenderness, non-tender Neurologic: alert, motor strength/tone normal, oriented x3, sensory intact, responsive, speech normal Psychiatric: judgement/insight normal, memory normal, mood/affect normal, no suicidal/homicidal ideation Skin: no rash Lymphatic: no adenopathy Procedures Splinting Splinting : Consent: Verbal Location: right ankle Pre-Made Type: JARRED wrap Pre-Proc Neuro Vasc Exam: normal Post-Proc Neuro Vasc Exam: normal Patient Tolerated: Well Complications: None Medical Decision Making PA Attestation All my diagnosis and treatment plans were reviewed ad discussed with my supervising physician Dr. Cedeño Diagnostic Impression: Primary Impression: Right ankle sprain ER Course 28-year-old male with no significant past medical history here complaining of a 10 out of 10 right ankle pain x1 week. Patient reports that he fell off a porch and twisted his ankle 1 week ago. Patient was taking [id number] Motrin with no relief. 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 Patient has some localized swelling in the right lateral malleolus, denies any radiation, calf tenderness, numbness and tingling. Denies all other associated injuries, loss of consciousness, head injury, chest pain, shortness of breath, palpitation, no other associated symptoms. Ddx considered but are not limited to: ankle sprain, ankle strain, ankle fracture, ankle contusion Vital signs: are WNL, pt. is afebrile H&PE are most consistent with: Right ankle sprain ORDERS: ankle x-ray, ibuprofen, Robaxin ED INTERVENTIONS: Jarred wrap, Toradol DISCHARGE: At this time pt. is stable for d/c to home. Will provide printed patient care instructions, and any necessary prescriptions. Care plan and follow up instructions have been discussed with the patient prior to discharge. Patient to follow-up with her primary care provider and housing development specialist , alternate between ice and heating affected area, avoid strenuous physical activity. If worsening symptoms return to the emergency room Other X-Ray Diagnostic Results Other X-Ray Diagnostic Results : X-Ray ordered: right ankle # of Views/Limited Vs Complete: 3 View Indication: Pain EP Interpretation: Yes PA Xray: Interpretation reviewed, by supervising MD, and agrees with findings. Interpretation: no dislocation, no fractures Impression: No acute disease Electronically Signed by: Josette Gusman PA-C Last Vital Signs Date Time Temp Pulse Resp B/P (MAP) Pulse Ox O2 Delivery O2 Flow Rate FiO2 09/08/19 20:01 97.9 78 18 143/96 (112) 96 Room Air Disposition: HOME, SELF-CARE Condition: Stable Scripts Methocarbamol* (ROBAXIN-500*) 500 Mg Tablet 500 MG ORAL TID PRN for For Pain, #15 TAB 0 Refills Prov: Josette Gibbons 09/08/19 Ibuprofen (Ibu) 800 Mg Tablet 800 MG PO TID, #30 TAB Prov: Josette Gibbons 09/08/19 Referrals: NON PHYSICIAN (PCP) Patient Instructions: Ankle Sprain Additional Instructions: Take medication as directed, elevate affected area, follow-up with housing development specialist, avoid strenuous physical activity. If worsening symptoms return to the emergency room Josette Gibbons Sep 08, 2019 20:43
--- NOTE | 2019-09-08 21:00 | NUR ---
ED Nurse Note: pt is cleared to be d/c per ER provider, pt discharge and aftercare instruction provided w/ prescription, pt education done via discussion and handout, pt verbalized understanding, pt advised to follow up with pcp or return to ed if changes in condition, vss, ambulatory w/ steady gait, left accompanied by significant other. michele wrap applied per ER provider order, pt states pain is better with acewrap.
[2019-09-08 21:01] VITALS: BP 140/96
--- NOTE | 2019-09-09 11:13 | Diagnostic Imaging Report ---
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 No acute fractures. No dislocations. The joint spaces are preserved. Impression: No acute bony trauma
== END 2019-09-08 21:01 | disposition home or self-care (01) ==
LOC: EMR 20:28
DX: S93.401A Sprain of unspecified ligament of right ankle, initial encounter (principal); W17.89XA Other fall from one level to another, initial encounter; Y92.9 Unspecified place or not applicable; I10 Essential (primary) hypertension
CPT/HCPCS: 73610; Z7502; 99283